=== PATIENT | female | born 1985 | race Caucasian/White ===

== ENCOUNTER 2016-03-13 13:33 | Emergency (ER) | payer OTHER ==
[~2016-03-13] VITALS: Ht 162.6 cm; Wt 122.0 kg
[~2016-03-13 13:33] MED LIST: DESOTAB2 PO; SERT25TA PO
[2016-03-13 13:38] VITALS: TEMP 36.8; Ht 162.6 cm; Wt 122.0 kg
[2016-03-13] MEDS ORDERED: ACETAMINOPHEN 500 MG TAB PO STA (14:08)
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
[2016-03-13 15:17] VITALS: BP 117/94; PULSE 88; O2SAT 98
== END 2016-03-13 15:17 | disposition home or self-care (01) ==
LOC: EDBD 13:33 → C.EDA 13:34
DX: S70.01XA Contusion of right hip, initial encounter (principal); R07.9 Chest pain, unspecified; M54.9 Dorsalgia, unspecified; F32.9 Major depressive disorder, single episode, unspecified; Z79.899 Other long term (current) drug therapy; V43.53XA Car driver injured in collision with pick-up truck in traffic accident, initial encounter

== ENCOUNTER 2017-05-08 18:23 | Emergency (ER) | payer OTHER ==
[~2017-05-08] VITALS: Ht 162.6 cm; Wt 125.8 kg
[2017-05-08 18:29] VITALS: BP 174/119; TEMP 36.6; Ht 162.6 cm; Wt 125.8 kg
[2017-05-08] MEDS ORDERED: CLIN300C10 PO (18:54)
[2017-05-08] MEDS ORDERED: HYDR-5688 PO (18:54)
[2017-05-08] MEDS ORDERED: ACET-1256 PO (19:04)
[2017-05-08] MEDS ORDERED: VENL150C PO (19:04)
[2017-05-08] MEDS ORDERED: BCPILLS PO (19:04)
[2017-05-08 19:05] VITALS: PULSE 78; O2SAT 99
--- NOTE | 2017-05-08 23:34 | EMERGENCY ROOM VISIT NOTE ---
ED Visit Note First contact with patient: 18:36 CHIEF COMPLAINT: Jaw and face pain. HISTORY OF PRESENT ILLNESS: Ms. Mckeon is a 31-year-old white female who ambulates into the ED accompanied by female friend complaining of anterior mandibular dental pain. Historically patient reports she has been having ongoing dental issues since February 2017. She was seen by a local dentist who encouraged her to follow-up with an oral surgeon. She reports this appointment was last week and she has not contacted an oral surgeon. Patient reports over the last 2 days she has been developing progressive mandibular pain over the anterior aspect of the face. She places her discomfort in the area of tooth 27. She reports her pain has been constant and slightly increasing in intensity over the last 2 days. She describes her pain as a combination of deep achy pressure and palpation. The pain is radiating up along the mandible and into the preauricular area. Her pain worsens with exposure to hot and cold food and chewing food. She has not identified any alleviating factors related to the pain. She reports she has been taken NSAID medication without relief of her discomfort. Associated with her pain she reports she has been experiencing chills but no chato fever. She denies any recent facial trauma, facial swelling or erythema, diaphoresis, sore throat, difficulty swallowing, voice changes, nausea, vomiting, shortness of breath, drooling, painful talking. REVIEW OF SYSTEMS: As noted above in History of Present Illness. 8 body systems were reviewed with this patient and found to be negative unless noted above otherwise. PMH: Depression, status post cholecystectomy. CURRENT MEDICATION: control and Effexor. ALLERGIES TO MEDICATION: Penicillin. SOCIAL HISTORY: Patient is currently employed; she lives with family members and feels safe in her home environment; she denies tobacco and alcohol use. PHYSICAL EXAM: Vital Signs: Date Time Temp Pulse Resp B/P (MAP) Pulse Ox O2 Delivery O2 Flow Rate FiO2 05/08/17 19:05 78 18 99 05/08/17 18:29 36.6 79 20 174/119 96 Room Air General: 31 year-old female in mild to moderate distress due to pain, nontoxic appearing, afebrile and hemodynamically stable. Neurological: Awake, alert and oriented to person, place and time. Answering questions appropriately and following commands. Normal gait. Skin: Warm, dry and pink. No soft tissue lesions, rashes, or trauma noted. HEENT: Atraumatic and normocephalic. Mild anterior mandibular jaw swelling without erythema. No obviously signs of trauma of the face. Oral cavity is moist and pink. Airway is patent. Uvula is midline and no abscesses are seen. Patient has multiple teeth in different levels of decay. Over teeth 27 there is tenderness. The gingiva in this area is mildly erythematous but not edematous. I do not feel any tenderness or swelling under the tongue. No local lymphadenopathy. Right ear: No external tenderness. Auditory canal is pink and patent. Tympanic membrane was without erythema or edema or bulging. ED COURSE: Patient is assessed as noted above. Patient's medication list was reviewed. Patient is educated about her findings and instructed on her treatment plan; she verbalizes understanding and agreement with this plan. CLINIC IMPRESSION: Dental pain. Possible early abscess. DISPOSITION: Patient discharged home in stable condition; prior to departure she was reassessed and subjectively reported she was feeling better and rated her discomfort 3/10. PLAN: Comfort measures were discussed with the patient including a pain medication sliding scale of ibuprofen, acetaminophen and [place]; her name was checked in the state database and no red flags were noted and she was given appropriate narcotic precautions, additionally she was encouraged to use a liquid/ mechanical soft diet, consider using dental wax. Patient was encouraged to make an occult upcoming appointment with a oral surgeon for definitive care and treatment. Patient was met encouraged to keep her mouth clean with brushing, flossing and gargling with salt water 4 times a day. Patient was encouraged return the ED for worsening pain, facial swelling, fevers , vomiting or any new/concerning symptoms.
== END 2017-05-08 19:06 | disposition home or self-care (01) ==
LOC: C.EDB 18:24 → C.EDD 19:06
DX: K08.89 Other specified disorders of teeth and supporting structures (principal); K02.9 Dental caries, unspecified; F32.9 Major depressive disorder, single episode, unspecified; Z79.3 Long term (current) use of hormonal contraceptives; Z90.49 Acquired absence of other specified parts of digestive tract